=== PATIENT | female | born 1980 | race Hispanic/Latino ===

== ENCOUNTER 2017-03-03 14:13 | Emergency (ER) | payer BC ==
[2017-03-03 14:23] VITALS: BP 107/74; PULSE 87; RESP 16; TEMP 98; O2SAT 100
[2017-03-03] MEDS ORDERED: TDAP Vaccine 0.5 mL Syr IM ONE (15:14)
--- NOTE | 2017-03-03 15:25 | ED PDOC ---
HPI: Head Injury Time Seen by Provider: 03/03/17 15:04 Chief Complaint (Nursing): Headache Chief Complaint (Provider): head injury History Per: Patient Additional Complaint(s): Patient tripped and fell sustaining head injury at around 5 AM this morning. Patient states that she had medicated with Klonopin prior to going to sleep but she takes this medication every night. She believes that she fell while getting up to use the bathroom at 5 am because she was feeling woozy from her meds. Patient arrives with mild headache and has laceration to back of scalp. She is not sure of last tetanus. She has mild headache but denies any neck pain. She denies any etoh or illicit drug use. Past Medical History Reviewed: Historical Data, Nursing Documentation, Vital Signs Vital Signs: Last Vital Signs Temp 98 F 03/03/17 14:17 Pulse 87 03/03/17 14:17 Resp 16 03/03/17 14:17 BP 107/74 03/03/17 14:17 Pulse Ox 100 03/03/17 14:17 - Medical History PMH: Anxiety - Surgical History Other surgeries: left ankle surgery x 7 - Family History Family History: States: No Known Family Hx - Living Arrangements Living Arrangements: Alone - Social History Current smoker - smoking cessation education provided: Yes Alcohol: None Drugs: Denies - Immunization History Hx Tetanus Toxoid Vaccination: No (not sure of last tetanus) - Home Medications Home Medications: Ambulatory Orders Medication Instructions Recorded Cephalexin [Keflex] 500 mg PO TID #21 capsule 03/03/17 - Allergies Allergies/Adverse Reactions: Allergies Allergy/AdvReac Type Severity Reaction Status Date / Time pecan nut Allergy ANAPHYLAXIS Verified 03/03/17 14:17 soy Allergy ANAPHYLAXIS Verified 03/03/17 14:17 Sulfa (Sulfonamide Allergy ANAPHYLAXIS Verified 03/03/17 14:17 Antibiotics) Review of Systems ROS Statement: Except As Marked, All Systems Reviewed And Found Negative Neurological: Positive for: Other (head injury at 5 am, no LOC) Physical Exam - Reviewed Nursing Documentation Reviewed: Yes Vital Signs Reviewed: Yes - Physical Exam Appears: Positive for: Well, Non-toxic, No Acute Distress Head Exam: Negative for: ATRAUMATIC (2.5 cm laceration noted to occipital scalp , no active bleeding, no FB) Skin: Positive for: Normal Color. Negative for: Rash Eye Exam: Positive for: Normal appearance, EOMI, PERRL ENT: Positive for: Normal ENT Inspection Neck: Positive for: Painless ROM. Negative for: Pain On Movement Of Neck Cardiovascular/Chest: Positive for: Regular Rate, Rhythm Respiratory: Positive for: Normal Breath Sounds Neurologic/Psych: Positive for: Alert, Oriented - Laboratory Results Urine POC: Negative (test refused by patient, she is certain she is not , waiver signed) - ECG O2 Sat by Pulse Oximetry: 100 Pulse Ox Interpretation: Normal - Other Rad CT head X-Ray: Read By Radiologist X-Ray Interpretation: see below Medical Decision Making Medical Decision Makin36 year old with head injury Plan: CT head Tetanus booster Scalp laceration repair Pain meds declined CT: IMPRESSION: No evidence of acute intracranial hemorrhage intracranial collection mass effect or midline shift. Opacification of the right maxillary sinus. Procedure Note: Under sterile conditions laceration to occipital scalp was cleansed with Betadine, wound was explored for foreign bodies, no foreign bodies noted. Patient declined local anesthetic. 5 valentina were used to approximate wound edges, good wound approximation was achieved. Procedure was tolerated well by patient with no acute complications. Patient was given wound care instructions, advised wound check in 2-3 days and staple removal 10-14 days. Disposition - Clinical Impression Clinical Impression: Head injury, Scalp laceration, Requires a booster tetanus - Patient ED Disposition Is Patient to be Admitted: No Counseled Patient/Family Regarding: Studies Performed, Diagnosis, Need For Followup - Disposition Referrals: [facility] [Outside] Disposition: Routine/Home Disposition Time: 16:50 Condition: STABLE Additional Instructions: Keep wound clean and dry. Tylenol as needed for pain. Take antibiotics as directed. Wound check in 2 days, staple removal 14 days. Prescriptions: Cephalexin [Keflex] 500 mg PO TID #21 capsule Instructions: Diphtheria/Acellular Pertussis/Tetanus Booster Vaccine (Tdap) ( Injection), Laceration (ED), Head Injury (ED)
--- NOTE | 2017-03-03 16:41 | CT ---
PROCEDURE: CT HEAD WITHOUT CONTRAST. HISTORY: trauma COMPARISON: None available. TECHNIQUE: Axial computed tomography images were obtained through the head/brain without intravenous contrast. Radiation dose: Total exam DLP = mGy-cm. This CT exam was performed using one or more of the following dose reduction techniques: Automated exposure control, adjustment of the mA and/or kV according to patient size, and/or use of iterative reconstruction technique. FINDINGS: HEMORRHAGE: No intracranial hemorrhage. BRAIN: No mass effect or edema. No atrophy or chronic microvascular ischemic changes. VENTRICLES: Unremarkable. No hydrocephalus. CALVARIUM: Unremarkable. PARANASAL SINUSES: Opacification of the visualized portion of right maxillary sinus is noted. MASTOID AIR CELLS: Unremarkable as visualized. No inflammatory changes. OTHER FINDINGS: None. IMPRESSION: No evidence of acute intracranial hemorrhage intracranial collection mass effect or midline shift. Opacification of the right maxillary sinus.
== END 2017-03-03 17:10 | disposition home or self-care (01) ==
LOC: H.ER 14:13 → EDSEX 14:13 → H.ER 17:10
DX: S09.90XA Unspecified injury of head, initial encounter (principal); S01.01XA Laceration without foreign body of scalp, initial encounter; W19.XXXA Unspecified fall, initial encounter; Y92.89 Other specified places as the place of occurrence of the external cause; F41.9 Anxiety disorder, unspecified